=== PATIENT | male | born 1965 | race Caucasian/White ===

== ENCOUNTER 2022-04-22 13:29 | Outpatient (CLI) | payer OTHER, SELFPAY ==
--- NOTE | 2022-04-22 13:43 | XR_ITS ---
WS: [email or web address] Left hand, 3 views, 04/22/2022 Clinical Data: Z79.899 - Other [facility] (current) drug therapy Comparison: Left hand, 09/06/2018. Findings: No fractures or dislocations are seen. The soft tissues are unremarkable. The joint spaces are normal No periarticular demineralization or calcifications are seen. 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
--- NOTE | 2022-04-22 13:43 | XR_ITS ---
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 Findings: No fractures or dislocations are seen. The soft tissues are unremarkable. The joint space s are normal No periarticular demineralization or calcifications are seen. XR/XR hand RT min 3V* [id number] Impression: Negative right hand.
--- NOTE | 2022-04-22 13:43 | XR_ITS ---
WS: [email or web address] Lumbar spine, 3 views, 04/22/2022 Clinical Data: Z79.899 - Other [facility] (current) drug therapy Comparison: None. Findings: No compression fractures or subluxation is seen. No disc space narrowing is seen. The transverse proc esses and SI joints are normal. There is minimal anterior spurring L1-L5. XR/XR lumbar spine 2-3V* [id number] Impression: Minimal osteoarthritis L1-L5.
--- NOTE | 2022-04-22 13:43 | XR_ITS ---
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 Findings: No compression fractures are seen. The disc heights are normal. There is calcification of t he anterior longitudinal ligaments at the anterior-inferior aspects of C3 and C5. There is calcificat ion in the anterior longitudinal ligament at C6-C7. There is no prevertebral soft tissue swelling. Th e odontoid is unremarkable. The soft tissues of the neck and the lung apices are normal. XR/XR cervical spine 3V* [id number] Impression: Minimal calcifications of the anterior longitudinal ligaments at C3, C5 and C6- C7.
--- NOTE | 2022-04-22 13:43 | XR_ITS ---
WS: [email or web address] Left shoulder, 2 views, 04/22/2022 Clinical Data: Z79.899 - Other assisted (current) drug therapy Comparison: None. Findings: No fractures or dislocations are seen. The AC joint is normal. The adjacent left clavicle, left scapu la and ribs are normal. The soft tissues are unremarkable. 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
--- NOTE | 2022-04-22 13:43 | XR_ITS ---
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 Findings: No fractures or dislocations are seen. The AC joint is normal. The adjacent right clavicle, right sca pula and ribs are normal. The soft tissues are unremarkable. XR/XR shoulder RT min 2V* [id number] Impression: Negative right shoulder.
[2022-04-22 14:12] LABS: Basophils # 0.1 10^3/uL (0.0-0.1); Basophils % 0.7 %; Eosinophils # 0.1 10^3/uL (0.0-0.8); Hematocrit 42.8 % (42.0-52.0); Hemoglobin 13.6 g/dL (11.7-16.6); Lymphocytes # 1.5 10^3/uL (0.8-4.8); Lymphocytes % 21.7 %; Mean Corpuscular HGB Conc 31.8 g/dL (30.0-36.0); Mean Corpuscular Hemoglobin 27.3 pg (28.0-34.0); Mean Corpuscular Volume 85.8 fl (80-94); Mean Platelet Volume 11.8 fL (7.4-10.4); Monocytes # 0.6 10^3/uL (0.2-0.9); Monocytes % 8.2 %; Neutrophils # 4.67 10^3/uL (1.8-7.7); Neutrophils % 67.1 %; Nucleated Red Blood Cells % 0 %; Platelet Count 237 10^3/cmm (130-400); Red Blood Count 4.99 10^6/uL (4.1-5.3); Red Cell Distribution Width 13.6 % (12.1-15.1)
[2022-04-22 14:27] LABS: Erythrocyte Sedimentation Rate 52 mm/hr (0-10)
[2022-04-22 14:41] LABS: Alanine Aminotransferase 17 U/L (0-41); Albumin Level 4.4 g/dL (3.5-5.2); Alkaline Phosphatase 92 IU/L (40-130); Anion Gap 13.7 (5-19); Aspartate Amino Transferase 15 U/L (0-40); Blood Urea Nitrogen 11 mg/dL (6-20); C Reactive Protein 12.2 mg/L (0.0-4.9); Calcium 9.8 mg/dL (8.5-10.5); Carbon Dioxide 26 mmol/L (22-29); Chloride 100 mmol/L (98-107); Globulin 2.9 g/dL (1.3-4.6); Glomerular Filtration Rate 116.2 mL/min (90-130); Glucose 92 mg/dL (65-115); Osmolality Calculated 279 mOsm/kg (285-295); Potassium 4.7 mmol/L (3.5-5.1); Sodium 135 mmol/L (136-145); Thyroid Stimulating Hormone 1.54 uIU/mL (0.27-4.20); Total Bilirubin 0.4 mg/dL (0.15-1.2); Total Protein 7.3 g/dL (6.6-8.7)
[2022-04-22 17:09] LABS: Hepatitis B Core AB, Total Non-Reactive (Nonreactive); Hepatitis B Surface Antigen Non-Reactive (Nonreactive); Hepatitis C Virus Antibody Non-Reactive (Nonreactive)
[2022-04-25 15:31] LABS: Cyclic Citrullinated Peptide <16 UNITS
[2022-04-26 12:34] LABS: Quantiferon Mitogen >10.00 IU/mL; Quantiferon Nil 0.02 IU/mL; Quantiferon Plus TB1 0.01 IU/mL; Quantiferon TB Gold NEGATIVE (NEGATIVE)
[2022-04-27 12:57] LABS: Testosterone, Free 24.1 pg/mL (46.0-224.0)
== END 2022-04-22 13:30 | disposition home or self-care (01) ==
PROVIDERS: PCP Student in an Organized Health Care Education/Training Program; Visit Provider Internal Medicine
DX: Z11.59 Encounter for screening for other viral diseases (principal); M06.9 Rheumatoid arthritis, unspecified; Z79.899 Other long term (current) drug therapy
CPT/HCPCS: 36415; 72040; 72100; 73030; 73130; 80053; 84402; 84443; 85025; 85651; 86140; 86200; 86431; 86480; 86704; 86803; 87340

== ENCOUNTER → 2022-10-29 12:30 | Outpatient (BNVA) | payer OTHER, SELFPAY | PROVIDERS: PCP Student in an Organized Health Care Education/Training Program; Visit Provider Nurse Practitioner | DX: R05.9 Cough, unspecified (principal) | CPT/HCPCS: 71046 ==